=== PATIENT | female | born 1945 | race Caucasian/White ===

== ENCOUNTER 2018-05-05 06:00 | Day surgery (SDC) | payer OTHER ==
[~2018-05-05 06:00] MED LIST: BACTRIM DS TABL1 TAB PO; CATAFLAN PO; GRALISE1 EACH PO; LANTUS; LOTREL 10-20 M1 EACH PO; METFORMIN HCL500 MG PO; PAXIL20 MG PO; PREVASTATIN; TRADJENTA PO; ZYPREXA2.5 MG PO
[2018-05-05] MEDS ORDERED: RECTICARE30 GM TOP (10:06)
[2018-05-05] MEDS ORDERED: ULTRACET PO (10:06)
== END 2018-05-05 12:15 | disposition home or self-care (01) ==
LOC: CIR.AMB 06:00
DX: D12.8 Benign neoplasm of rectum (principal); I10 Essential (primary) hypertension; F32.89 Other specified depressive episodes